=== PATIENT | male | born 1965 | race Caucasian/White ===

== ENCOUNTER 2016-10-28 17:41 | Emergency (ER) | payer MEDICARE, OTHER ==
[2016-10-28 19:57] LABS: HEMOGLOBIN 13.2 gm/dl (14.0-17.5); RED BLOOD COUNT 4.36 M/UL (4.20-5.50); WHITE BLOOD COUNT 9.2 K/UL (4.5-11.0)
[2016-10-28 20:18] LABS: BUN/CREATININE RATIO 9 (0-10)
== END 2016-10-28 23:10 | disposition home or self-care (01) ==
LOC: ER1 17:41
PROVIDERS: Specialist/Technologist Athletic Trainer
DX: G40.409 Other generalized epilepsy and epileptic syndromes, not intractable, without status epilepticus (principal); K21.9 Gastro-esophageal reflux disease without esophagitis; Z88.0 Allergy status to penicillin; Z79.899 Other long term (current) drug therapy
CPT/HCPCS: 36415; 70450; 80053; 80185; 82550; 82553; 82803; 84484; 85025; 93005; 96374; 99285; J2060

== ENCOUNTER 2021-02-03 11:37 | Emergency (ER) | payer MEDICARE, OTHER ==
[~2021-02-03 11:37] MED LIST: BRIVIACT PO; CIPRO500 MG PO; CLARITIN 10MG T10 MG PO; DEPAKOTE ER500 MG PO; DOXEPIN HCL25 MG PO; ENSURE LIQUID237 ML PO; FERROUS SULFAT325 MG PO; KEFLEX CAP 500500 MG PO; MAPAP ARTHRITI650 MG PO; NITROFURANTOIN100 MG PO; OMEGA 3 FISH O1 EACH PO; PROTONIX40 MG PO; TRIHEXYPHENIDYL2 MG PO; TRIPLE ANTIBIOT14 GM TP; VIMPAT150 MG PO; ZOFRAN ODT 4 MG4 MG PO
== END 2021-02-03 12:56 | disposition home or self-care (01) ==
LOC: ER1 11:37
DX: S01.112A Laceration without foreign body of left eyelid and periocular area, initial encounter (principal); G40.909 Epilepsy, unspecified, not intractable, without status epilepticus; Z88.0 Allergy status to penicillin; Z88.8 Allergy status to other drugs, medicaments and biological substances; W20.8XXA Other cause of strike by thrown, projected or falling object, initial encounter
CPT/HCPCS: 12013; 99283